=== PATIENT | male | born 1945 | race Caucasian/White ===

== ENCOUNTER 2017-09-16 08:30 | Day surgery (SDC) | payer MEDICARE ==
[2017-09-16] MEDS ORDERED: FAMOTIDINE 20 MG TAB PO ONE (08:35)
[2017-09-16] MEDS ORDERED: diphenhydrAMINE 25 MG CAP PO ONE ×2 (08:35→09:18)
[2017-09-16] MEDS ORDERED: ASPIRIN EC 325 MG TAB PO ONE ×2 (08:35→09:18)
[2017-09-16] MEDS ORDERED: DIAZEPAM 5 MG TAB PO ONE (08:35)
[2017-09-16] MEDS ORDERED: NS 1,000 ML IV ONE (08:35)
--- NOTE | 2017-09-16 08:57 | CPEKG ---
Heart Rate: 51 RR Interval: 1176 P-R Interval: 284 QRSD Interval: 96 QT Interval: 448 QTC Interval: 413 P [place]: -20 QRS [place]: 25 T Wave [place]: 121 EKG Severity - ABNORMAL ECG - EKG Impression: SINUS RHYTHM EKG Impression: FIRST DEGREE AV BLOCK EKG Impression: BORDERLINE INFERIOR Q WAVES EKG Impression: ABNORMAL T, CONSIDER ISCHEMIA, ANT-LAT LEADS Electronically Signed By: Osiel Glez 16-Sep-2017 13:51:48
[2017-09-16] MEDS ORDERED: FAMOTIDINE 20 MG TAB ONE (09:18)
--- NOTE | 2017-09-16 09:18 | PDPROPOC ---
Sedation Plan of Care Sedation Plan of Care: vital signs stable, mental status noted, patient educated of risks, benefits, alternatives, patient can tolerate sedation ASA Classification: ASA 2 Planned drugs: fentanyl, midazolam Mallampati Score: Class 1 Mallampati Reference Image: Patient passed 3-3-2 rule?: Yes
--- NOTE | 2017-09-16 09:18 | PDHPUP ---
History & Physical Update H&P update statement: This history and physical update is based on an assessment of the patient which was completed after admission or registration (within 24 hours), but prior to the surgery/procedure. H&P update: H&P reviewed & patient examined, no change in patient's condition since H&P completed
[2017-09-16] MEDS ORDERED: DIAZEPAM 5 MG TAB ONE (09:19)
[2017-09-16 09:23] LABS: PLATELET COUNT 153 10^3/uL (150-400)
[2017-09-16 09:33] LABS: INR 0.91 (0.83-1.16); PROTIME(PATIENT) 12.5 SEC (12.0-15.0)
[2017-09-16] MEDS ORDERED: LIDOCAINE 1% 300 MG/30 ML SDV ONE (10:49)
[2017-09-16] MEDS ORDERED: IOPAMIDOL (ISOVUE-370) 150 ML BTL IV ONE (10:50)
[2017-09-16] MEDS ORDERED: MIDAZOLAM 2 MG/2 ML VIAL ONE ×2 (10:50)
[2017-09-16] MEDS ORDERED: fentaNYL 100 MCG/2 ML INJ ONE (10:50)
[2017-09-16] MEDS ORDERED: MAGNESIUM SULF 1 GM/DEXTROSE 100 ML BAG IV ONE (11:40)
[2017-09-16] MEDS ORDERED: BIVALIRUDIN 250 MG/5 ML VIAL IV ONE (12:17)
[2017-09-16] MEDS ORDERED: NITROGLYCERIN 1,500 MCG/15 ML VIAL MISC ONE (12:41)
--- NOTE | 2017-09-16 12:57 | PDDXCAT ---
Diagnostic Cath Note - . Date: 09/16/17 Fisher Dip Net: [place] Indication: CCC Class III and IV angina on medical treatment, other (Abnormal stress test) - Procedure Access: right groin Procedure: other (IVUS of the LAD and LM. ) Complications: None. Estimated blood loss: <50ml Closure method: Angioseal Intervention: IVUS of the proximal LAD was accomplished with a 7 Urdu EBU4 guide catheter and a 0.014 Intuition coronary wire and a eSilicon IVUS catheter. The proximal LAD was found to have a 53% plaque area stenosis at level of diagonal takeoff without evidence of flow limiting obstruction. Abdominal aortogram was performed with the [employer] power injector to evaluate the abdominal aorta and iliac takeoff given noted iliac tortuosity. The patient has atheroma involving distal abdominal aorta with a early saccular bulge oriented to the left. Periodic evaluation and imaging of the abdominal aorta should be performed to rule out progression to flavio aneurysm. These findings were communicated with Dr. Glez.
== END 2017-09-16 17:00 | disposition home or self-care (01) ==
LOC: FCATH 08:30
PROVIDERS: ATTEND Anesthesiology Pain Medicine
PROC: B2111ZZ Fluoroscopy of Multiple Coronary Arteries using Low Osmolar Contrast (ICD-10-PCS; principal; 2017-09-16)
PROC: B2151ZZ Fluoroscopy of Left Heart using Low Osmolar Contrast (ICD-10-PCS; principal; 2017-09-16)
PROC: 4A023N7 Measurement of Cardiac Sampling and Pressure, Left Heart, Percutaneous Approach (ICD-10-PCS; principal; 2017-09-16)
PROC: B241ZZ3 Ultrasonography of Multiple Coronary Arteries, Intravascular (ICD-10-PCS; 2017-09-16)
DX: R07.9 Chest pain, unspecified (principal); I25.10 Atherosclerotic heart disease of native coronary artery without angina pectoris; R93.1 Abnormal findings on diagnostic imaging of heart and coronary circulation; R94.39 Abnormal result of other cardiovascular function study; R00.2 Palpitations; I10 Essential (primary) hypertension; E78.5 Hyperlipidemia, unspecified; E11.9 Type 2 diabetes mellitus without complications
CPT/HCPCS: 75625; 92978; 93005; 93458; C1753; C1769; C1887; C1760; J0583; J1644; J2250; J3010; J3475; Q9967

== ENCOUNTER 2018-04-01 07:04 | Observation (INO) | payer OTHER ==
[2018-04-01] MEDS ORDERED: NS 1,000 ML IV ONE (07:06)
--- NOTE | 2018-04-01 07:33 | CPEKG ---
Heart Rate: 80 RR Interval: 750 P-R Interval: 280 QRSD Interval: 94 QT Interval: 396 QTC Interval: 457 P [place]: -30 QRS [place]: 26 T Wave [place]: 146 EKG Severity - ABNORMAL ECG - EKG Impression: SINUS RHYTHM EKG Impression: FIRST DEGREE AV BLOCK EKG Impression: PROBABLE INFERIOR INFARCT, OLD EKG Impression: ABNORMAL T, CONSIDER ISCHEMIA, ANT-LAT LEADS Electronically Signed By: Herbie Christie 01-Apr-2018 07:52:24
[2018-04-01 07:55] LABS: PLATELET COUNT 143 10^3/uL (150-400)
[2018-04-01 08:03] LABS: INR 0.98 (0.83-1.16); PROTIME(PATIENT) 13.2 SEC (12.0-15.0)
[2018-04-01] MEDS ORDERED: LIDOCAINE 1% 300 MG/30 ML SDV ONE (08:09)
[2018-04-01] MEDS ORDERED: BUPIVACAINE 0.75% 10 ML SDV ONE (08:09)
[2018-04-01] MEDS ORDERED: ISOPROTERENOL HCL/D5W 0.2 MG/50 ML BAG IV ONE ×2 (08:09→10:39)
[2018-04-01] MEDS ORDERED: HEPARIN 10,000 UNIT/10 ML MDV (1,000 UNIT/ML) ONE (08:09)
--- NOTE | 2018-04-01 08:10 | PDANEPAE ---
ANE Past Medical History - Pulmonary History Hx Sleep Apnea: No ANE Review of Systems Review of Systems: ANE Patient History - Allergies Allergies/Adverse Reactions: No Known Allergies Allergy (Verified 03/25/18 09:55) - Home Medications Home Medications: Aspirin [Aspirin 81mg (*)] 81 mg PO DAILY 09/16/17 [Last Taken 03/31/18 08:00] Atorvastatin Calcium [Lipitor 40 mg (*)] 40 mg PO DAILY@18 09/16/17 [Last Taken 03/31/18 18:00] Metoprolol Succinate Xr [Toprol Xl 50 mg (*)] 75 mg PO DAILY 09/16/17 [Last Taken 03/25/18 21:00] Venlafaxine Xr [Effexor Xr 75MG (*)] 150 mg PO DAILY 09/16/17 [Last Taken 08:00] metFORMIN HCL [Glucophage 500 mg (*)] 500 mg PO BIDMEAL 09/16/17 [Last Taken 18:00] traZODone [traZODONE 50MG (*)] 50 mg PO HS PRN 09/16/17 [Last Taken 03/31/18 21: 00] amLODIPine BESYLATE [Norvasc 10 mg (*)] 10 mg PO DAILY 03/25/18 [Last Taken 21:00] - Smoking Hx Smoking Status: Never smoked ANE Labs/Vital Signs - Labs Result Diagrams: 04/01/18 07:50 04/01/18 07:50 - Vital Signs Height: 168 cm Weight: 82.6 kg ANE Physical Exam - Airway Neck exam: FROM Mallampati Score: Class 2 Mouth exam: poor dentition, dentures - Pulmonary Pulmonary: no respiratory distress - Cardiovascular Cardiovascular: regular rate and rhythym - ASA Status ASA Status: III ANE Anesthesia Plan Anesthesia Plan: general endotracheal anesthesia
[2018-04-01] MEDS ORDERED: PROPOFOL/EMULSION 500 MG/50 ML BOTTLE IV ONE ×3 (08:15→10:59)
[2018-04-01] MEDS ORDERED: fentaNYL 100 MCG/2 ML INJ ONE (08:15)
[2018-04-01] MEDS ORDERED: ROCURONIUM 100 MG/10 ML VIAL ONE (08:24)
--- NOTE | 2018-04-01 08:38 | PDGENHP ---
History & Physical Chief Complaint: symptomatic svt Relevant Physical Exam: [id number] Cardiorespiratory Assessment: prior failed ablation for avnrt. Repeat ablation today - risks reviewed with him and including high risk of AV block which may require pacemaker. Risks of PM implant incl. tamponade, ptx d.w. them. He has signed consent for pacemaker.
[2018-04-01] MEDS ORDERED: SUGAMMADEX SODIUM 200 MG/2 ML VIAL IVP ONE (11:07)
[2018-04-01] MEDS ORDERED: traZODone 50 MG TAB PO PRN (11:18)
[2018-04-01] MEDS ORDERED: fentaNYL 100 MCG/2 ML INJ IVP PRN (11:32)
[2018-04-01] MEDS ORDERED: NALOXONE HCL 0.4 MG/ML INJ IVP PRN (11:32)
[2018-04-01] MEDS ORDERED: ALBUTEROL 3 ML DEYVIAL IH PRN (11:32)
[2018-04-01] MEDS ORDERED: ONDANSETRON 4 MG/2 ML VIAL IVP PRN (11:32)
--- NOTE | 2018-04-01 11:33 | POSTANESTH ---
Post Anesthetic Evaluation Cardiovascular Status: Similar to Pre-Op Cond Respiratory Status: Similar to Pre-op Cond. Level of Consciousness/Mental Status: Mildly Sleepy, Arousable Pain Control: Adequate, Prn Tx Ordered Nausea/Vomiting Control: Adequate, Prn Tx Ordered Complications Possibly Related to Anesthesia: None Noted
--- NOTE | 2018-04-01 11:37 | CPEKG ---
Heart Rate: 88 RR Interval: 682 P-R Interval: 244 QRSD Interval: 98 QT Interval: 420 QTC Interval: 509 P [place]: -62 QRS [place]: 20 T Wave [place]: 198 EKG Severity - ABNORMAL ECG - EKG Impression: SINUS OR ECTOPIC ATRIAL RHYTHM EKG Impression: FIRST DEGREE AV BLOCK EKG Impression: INFERIOR INFARCT, AGE INDETERMINATE EKG Impression: ABNORMAL T, CONSIDER ISCHEMIA, ANT-LAT LEADS EKG Impression: PROLONGED QT INTERVAL Electronically Signed By: Herbie Christie 01-Apr-2018 12:53:54
--- NOTE | 2018-04-01 12:41 | EPPROC ---
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 The right clavicular region, right groin, and left groin area were prepped and draped in the usual sterile manner. Anesthesiologist Dr. Mckay Mattson administered general anesthesia. Appropriate non-invasive blood pressure, pulse oximetry and end-tidal CO2 monitoring was established. All catheters were placed percutaneously using the modified Seldinger technique , and advanced into position under fluoroscopic guidance. One #6 Mosotho hexapolar non-deflectable electrode catheter was inserted into the right atrial appendage via the left femoral vein (2mm spacing; except the proximal ring which was 25cm from the tip used for unipolar recordings). One #7 Mosotho deflectable octapolar electrode catheter was advanced to the His-bundle position via the left femoral vein (2mm spacing). One #7 Mosotho deflectable quadrapolar catheter was advanced to the anteroseptal right ventricle via the right femoral vein. One #7 Mosotho deflectable catheter with 10 pairs of electrodes was placed via the right femoral vein into the coronary sinus. Heparin was given to keep ACT > 200 s. Programmed stimulation was performed from the right atrium, right ventricle and coronary sinus (left atrium). Parahisian pacing demonstrated constant H-A interval with changing V-A intervals and stimulus-A intervals during capture and loss of capture of proximal RBB proving retrograde conduction over AV node. AVNRT was induced during infusion of isoproterenol 4 mcg/min. VA interval was 90 ms. Episode was nonsustained and therefore entrainment could not be performed. Tachycardia started with prolongation of AH interval. During change in tachycardia cycle length, HH interval change preceded AA interval change. A #8 Mosotho deflectable quadrapolar electrode catheter (2mm-5mm-2mm spacing) with 4 mm tip electrode and sensor for the 3D mapping Carto system was advanced to the right atrium. 3 D mapping of the inter-atrial septum and coronary sinus was performed and location of the AV node was marked. A Mobi sheath was used. RF applications were delivered to the region between the tricuspid annulus and the coronary sinus ostium, at the level of the upper edge of the coronary sinus ostium. Radiofrequency applications were also delivered along the roof of the proximal coronary sinus. Programmed stimulation was continued post ablation at baseline and during graded doses of isoproterenol upto 4mcg/min. Sustained AVNRT was not inducible. There were no echo beats. Atrial tachycardia, 1 min in duration, 1 instance, cycle length 330 milliseconds was seen. Early atrial activation was in the his bundle catheter. There was AV dissociation during atrial tachycardia. This was not targeted for ablation. The catheters were removed. Sheaths were removed in the EP lab after applying subcutaneous purse string suture. The patient was transferred to the cardiovascular holding area in stable condition. There were no apparent complications. Results: A. Spontaneous Intervals: Pre ablation SCL 850 ms AH 180 ms HV 50 ms Post ablation SCL 650 ms AH 150 ms HV 50 ms B. Antegrade AV jaja function (decremental pacing) Pre ablation FPERP 550 ms SPERP 490 ms WBB CL 480 ms Post ablation FPERP 390 ms WBB CL 380 ms C. Retrograde AV jaja function (decremental pacing) Pre ablation FPERP 490 ms WBB CL 480 ms D. Arrhythmias: Sustained slow/fast AVNRT Cycle length 380 ms, AH interval 250 ms, YOUNG interval 110 ms VA interval 90 ms CONCLUSIONS 1. Prior ablation procedure at outside institution. 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 2. 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 3. Successful ablation of the slow AV jaja pathway with elimination of 1:1 antegrade conduction over the slow AV jaja pathway, all retrograde conduction over the slow AV jaja pathway and the inducibility of AVNRT. 4. Atrial tachycardia, likely fast pathway/septal origin. Not targeted for mapping or ablation because there was a single episode during this procedure 5. No complications. Patient Problems: Problems Problem Status Onset Supraventricular tachycardia Acute
[2018-04-01] MEDS: metFORMIN HCL 500 MG TAB PO SCH (13:50)
[2018-04-01] MEDS ORDERED: ATORVASTATIN CALCIUM 40 MG TAB PO SCH (18:00)
[2018-04-02 04:20] LABS: PLATELET COUNT 127 10^3/uL (150-400)
[2018-04-02 07:17] VITALS: BP 111/73
[2018-04-02] MEDS: metFORMIN HCL 500 MG TAB PO SCH (07:46)
--- NOTE | 2018-04-02 08:46 | CPEKG ---
Heart Rate: 69 RR Interval: 870 P-R Interval: 300 QRSD Interval: 94 QT Interval: 412 QTC Interval: 442 P [place]: 12 QRS [place]: 23 T Wave [place]: 115 EKG Severity - ABNORMAL ECG - EKG Impression: SINUS RHYTHM EKG Impression: FIRST DEGREE AV BLOCK EKG Impression: PROBABLE INFERIOR INFARCT, OLD EKG Impression: LATERAL LEADS ARE ALSO INVOLVED Electronically Signed By: Herbie Christie 02-Apr-2018 13:19:09
[2018-04-02] MEDS ORDERED: ASPIRIN 81 MG CHEWABLE TAB PO SCH (09:00)
[2018-04-02] MEDS ORDERED: VENLAFAXINE XR 75 MG CAP PO SCH (09:00)
--- NOTE | 2018-04-02 12:41 | ECHO ---
[email or web address] [address] [address] Main: [phone] Fax: Transthoracic Echocardiogram Name: LATRELL RIBEIRO MR#: [id number] Study Date: 04/02/2018 Study Time: 07:39 AM Date of : 1945 Age: 73 year(s) Height: 167.6 cm (66 in.) Weight: 82.55 kg (182 lb.) BSA: 1.92 m2 Gender: Male Examination: Echo Indication: F/U Post EP Study Image Quality: Adequate Contrast: Requested by: Harish Nobles BP: 111 mmHg/73 mmHg Heart Rate: Rhythm: Indication: F/U Post EP Study Procedure Staff Guest Services Director: Aleah Modi RDCS Reading Physician: Lewis Toussaint MD Requesting Provider: Conclusions: Normal size left ventricle. Mild concentric LV hypertrophy. Normal global systolic LV function. EF is 66 %. No regional wall motion abnormality. Diastolic dysfunction is present. . Mild mitral valve regurgitation is present. No mitral stenosis is present. Trivial aortic valve regurgitation. No aortic valve stenosis is present. Mild tricuspid regurgitation is present. The pulmonary artery pressure is normal. Normal size aortic root measuring 3.6 cm. Normal size ascending aorta measuring 3.3 cm. No previous available Measurements: Chambers Valvular Assessment AV/MV Valvular Assessment TV/PV Normal Normal Normal Name Value Range Name Value Range Name Value Range Ao Hanna (2D): 3.6 cm (1.4 cm-2.6 AV Vmax: 1.29 m/s (1 m/s-1.7 PV Vmax: 0.84 m/s (0.6 m/s-0.9 cm) m/s) m/s) IVSd (2D): 1.2 cm (0.6 cm-1.1 AV maxP mmHg ( - ) PV PGmax: 3 mmHg ( - ) cm) AV meanP mmHg ( - ) LVDd (2D): 3.9 cm (4.2 cm-5.9 LYNN (VTI): 3.6 cm ( - ) cm) MV E Vmax: 0.65 m/s ( - ) LVDs (2D): 2.7 cm (2.1 cm-4 MV A Vmax: 0.86 m/s ( - ) cm) MV E/A: 0.76 ( - ) MV PHT: 0.072 s ( - ) Patient: LATRELL RIBEIRO Study Date: 04/02/2018 Page 1 of 2 07:39 AM LVPWd (2D): 1.3 cm (0.6 cm-1 MVA (PHT): 3.1 s ( - ) cm) LVOTd 2.3 cm 2.3 cm mm LVEF (BP): 66 % (>=55 %) RVDd(2D): 3.0 cm (1.9 cm-3.8 cmmm) Continued Measurements: Chambers Valvular Assessment AV/MV Valvular Assessment TV/PV Name Value Name Value Name Value LADs: 3.5 cm MV DecTime: 257 m/s CVP (est.): 5 mmHg LADs Lon.4 cm MV E' Septal: 0.06 m/s LA Area: 19.5 cm2 MV E/E' Septal: 11.70 LA Volume: 59 ml MV E/E' Lateral: 8.50 LA Volume Index: 30.7 ml/m2 RA Area: 18.7 cm2 Additional Vessels Name Value Ao Ascendin.3 cm Inferior Vena Cava: 1.7 cm Findings: Left Ventricle: Normal size left ventricle. Mild concentric LV hypertrophy. Normal global systolic LV function. EF is 66 %. No regional wall motion abnormality. Diastolic dysfunction is present. . Right Ventricle: Normal size right ventricle. Normal RV function. Left Atrium: The left atrium is normal in size. Right Atrium: The right atrium is normal in size. Mitral Valve: The mitral valve is normal in appearance and function. Mild mitral valve regurgitation is present. No mitral stenosis is present. Aortic Valve: The aortic valve is tri-leaflet. Trivial aortic valve regurgitation. No aortic valve stenosis is present. Tricuspid Valve: The tricuspid valve is normal in appearance and function. Mild tricuspid regurgitation is present. The pulmonary artery pressure is normal. Pulmonic Valve: The pulmonic valve is normal in appearance and function. There is no pulmonic regurgitation seen. Aorta: The aorta is normal. Normal size aortic root measuring 3.6 cm. Normal size ascending aorta measuring 3.3 cm. IVC: The IVC is normal sized. Pericardium: No pericardial effusion. No pleural effusion. (No Signature Object) Patient: LATRELL RIBEIRO Study Date: 04/02/2018 Page 2 of 2 07:39 AM [id number]
--- NOTE | 2018-04-02 17:10 | GDS ---
[f rep st] DISCHARGE SUMMARY DISCHARGE DIAGNOSES: 1. Supraventricular tachycardia, status post catheter mediated atrioventricular siri reentrant tachycardia ablation with elimination of one-to -one antegrade conduction over the slow atrioventricular siri pathway. 2. Atrial tachycardia likely fast pathway septal origin not targeted for mapping or ablation because there was a single episode during this procedure. 3. History of previous ablation at an outside institution with pre-existent atrioventricular siri conduction disease with first-degree atrioventricular block. HISTORY OF PRESENT ILLNESS: Please see dictated H and P from our office for complete details. In brief, the patient is a 73-year-old male with a history of SVT, status post prior ablation who is having ongoing episodes of symptomatic asymptomatic palpitations with heart rates up to 180 beats per minute. An ablation procedure was recommended and risks were reviewed, including stroke, VT, bleeding, and groin complications. He proceeded to ablation and was found to have AVNRT. This was treated with ablation. He did have 1 minute of atrial tachycardia. Plan is to discharge him to home with a 30 -day event monitor. PHYSICAL EXAMINATION: VITAL SIGNS: On day of discharge, blood pressure 111/73 , heart rate of 71, respirations 12, O2 saturation 92% on room air, temp of 98 degrees Fahrenheit. GENERAL: He is a pleasant male in no apparent distress. HEENT: Normocephalic without scleral icterus. HEART: Regular rate and rhythm. LUNGS: Clear bilateral. GROIN: Pursestring sutures were removed. There is no bruit or groin complications noted. LABORATORY DATA: CBC with WBC 5.59, hemoglobin 13.4, hematocrit 38.1, platelet count of 127. BMP with sodium 139, potassium 4, chloride 106, CO2 25, BUN 18, creatinine 0.9, glucose 100. Troponin 0.026. A 12-lead ECG with sinus rhythm. Telemetry reviewed and shows sinus rhythm. 04/02/2018 echocardiogram shows normal EF with LVEF of 66%. Diastolic dysfunction is present. Mild MR is present. Trivial AR is present. Mild TR. DIET: Per previous. ACTIVITY: Reviewed. Groin precautions were reviewed at length. DISCHARGE MEDICATIONS: Please see medication reconciliation. He is to continue his atorvastatin, trazodone, amlodipine, Effexor, metoprolol succinate , aspirin, and metformin. FOLLOWUP INSTRUCTIONS: 1. 30 [employer] event monitoring. 2. Follow up with Dr. Nobles in 1 month's time. /[id number]/MODL MTDD
== END 2018-04-02 11:20 | disposition home or self-care (01) ==
LOC: FCATH 07:04 → F2W 11:17
PROVIDERS: ADMIT Internal Medicine Cardiovascular Disease; ATTEND Internal Medicine Cardiovascular Disease
PROC: 02K83ZZ Map Conduction Mechanism, Percutaneous Approach (ICD-10-PCS; principal; 2018-04-01)
PROC: 025K3ZZ Destruction of Right Ventricle, Percutaneous Approach (ICD-10-PCS; principal; 2018-04-01)
PROC: 02H73MZ Insertion of Cardiac Lead into Left Atrium, Percutaneous Approach (ICD-10-PCS; principal; 2018-04-01)
PROC: 4A023FZ Measurement of Cardiac Rhythm, Percutaneous Approach (ICD-10-PCS; principal; 2018-04-01)
PROC: 5A1213Z Performance of Cardiac Pacing, Intermittent (ICD-10-PCS; principal; 2018-04-01)
PROC: 02563ZZ Destruction of Right Atrium, Percutaneous Approach (ICD-10-PCS; principal; 2018-04-01)
PROC: 02573ZZ Destruction of Left Atrium, Percutaneous Approach (ICD-10-PCS; principal; 2018-04-01)
DX: I47.1 Supraventricular tachycardia (principal)
CPT/HCPCS: 93005; 93306; 93613; 93621; 93623; 93653; C1730; C1731; C1732; G0378; J1644; J2704; J3010

== ENCOUNTER → 2019-01-15 | Outpatient (CLI) | payer OTHER | LOC: EMCIMAGING 11:43 | PROVIDERS: ATTEND Internal Medicine Pulmonary Disease | DX: R06.00 Dyspnea, unspecified (principal); G47.30 Sleep apnea, unspecified | CPT/HCPCS: 71046-PN ==